=== PATIENT | female | born 1955 | race Caucasian/White ===

== ENCOUNTER 2020-04-21 12:13 | Inpatient (IN) | payer BC, OTHER ==
[~2020-04-21] VITALS: Ht 157.5 cm; Wt 112.4 kg
[2020-04-21 13:05] LABS: Basophils # (auto) 0.1 10 ^3/uL (0-0.2); Eosinophils # (auto) 0 10 ^3/uL (0-0.8); Hemoglobin 7.4 g/dL (12.2-16.2); Lymphocytes # (auto) 1.1 10 ^3/uL (0.4-5.4); White Blood Cell 12.6 10^3/uL (4.4-10.8)
[2020-04-21 13:07] LABS: Basophils % (auto) 0.5 % (0.0-2.0); Hematocrit 22.4 % (36.0-46.0); Lymphocytes % (auto) 8.7 % (10.0-50.0); Mean Corpuscular Hemoglobin 29.7 pg (28.0-32.0); Mean Corpuscular Volume 89.9 fL (80.0-100.0); Monocytes # (auto) 0.7 10 ^3/uL (0-1.3); Monocytes % (auto) 5.8 % (0.0-12.0); Neutrophils # (auto) 10.7 10 ^3/uL (1.6-8.6); Platelet Count (auto) 344 10^3/uL (140-450); Red Blood Cells 2.49 10^6/uL (4.0-5.20); Red Cell Distribution Width 18.6 % (11.8-14.3)
[2020-04-21 13:18] LABS: Alanine Aminotransferase 25 U/L (13-56); Albumin 2.9 g/dL (3.4-5.0); Anion Gap 11 (5-15); Aspartate Aminotransferase 25 U/L (15-37); BUN/Creatinine Ratio 38.8; Blood Urea Nitrogen 31 mg/dL (7-18); Calcium 8.1 mg/dL (8.5-10.1); Carbon Dioxide 22 mmol/L (21-32); Chloride 100 mmol/L (98-107); GFR African American 93 mL/min; GFR Non-African American 77 mL/min; Glucose 107 mg/dL (74-106); Magnesium 2.1 mg/dL (1.6-2.6); Potassium 3.6 mmol/L (3.5-5.1); Sodium 133 mmol/L (136-145)
[2020-04-21 13:20] LABS: INR 1.07 (0.9-1.15); Partial Thromboplastin Time 21.5 sec (23.64-32.05)
[2020-04-21 13:24] LABS: Alkaline Phosphatase 48 U/L (45-117); Bilirubin, Total 0.4 mg/dL (0.2-1.0); Total Protein 5.9 g/dL (6.4-8.2)
[2020-04-21] MEDS ORDERED: SODIUM CHLORIDE 0.9% 1,000 ML IVB ONE (13:27)
[2020-04-21] MEDS ORDERED: PANTOPRAZOLE 40 MG/10 ML VIAL INJ IV ONE (13:30)
[2020-04-21] MEDS ORDERED: ONDANSETRON HCL 4 MG/2 ML VIAL IV ONE (13:30)
[2020-04-21 14:38] LABS: Urine Bacteria FEW /hpf (None Seen); Urine Blood Negative /uL (Negative); Urine Mucus MODERATE (None Seen); Urine Specific Gravity 1.023 (1.001-1.035); Urine WBC 3 /hpf (0 - 5)
[2020-04-21] MEDS ORDERED: ESCI20TA51 PO (15:48)
[2020-04-21] MEDS ORDERED: LOSA50TA30 PO (15:48)
[2020-04-21] MEDS ORDERED: MELO1TAB56 PO (15:48)
[2020-04-21] MEDS ORDERED: ALPR0.255 PO (15:48)
[2020-04-21] MEDS ORDERED: GABA400C11 PO (15:48)
[2020-04-21] MEDS ORDERED: NITROGLYCERIN 0.4 MG SL TAB SL PRN (16:15)
[2020-04-21] MEDS ORDERED: MORPHINE SULF INJ 2 MG/ML SYRINGE 1ML IV PRN (16:15)
[2020-04-21 16:27] VITALS: BP 116/55
[2020-04-21 16:45] VITALS: BP 123/62
[2020-04-21 17:01] LABS: Amphetamine Screen, Urine NEGATIVE (NEGATIVE); Barbiturate Scree,Urine NEGATIVE (NEGATIVE); Benzodiazephine Screen, Urine NEGATIVE (NEGATIVE); Cannabinoid Screen, Urine POSITIVE (NEGATIVE); Cocaine Screen, Urine NEGATIVE (NEGATIVE); Opiate Scree,Urine NEGATIVE (NEGATIVE); Phencyclidine Screen, Urine NEGATIVE (NEGATIVE)
[2020-04-21] MEDS: LORazepam 2MG/ML-1ML VIAL IV PRN (17:20)
[2020-04-21] MEDS: SODIUM CHLORIDE 0.9% 1,000 ML IV SCH (17:20)
[2020-04-21] MEDS: ONDANSETRON HCL 4 MG/2 ML VIAL IV PRN (17:23)
[2020-04-21 18:27] VITALS: BP 129/62
[2020-04-21 18:59] VITALS: BP 128/61
[2020-04-21 19:14] VITALS: BP 121/54
[2020-04-21 21:00] VITALS: BP 109/58
[2020-04-21] MEDS: MORPHINE SULF INJ 2 MG/ML SYRINGE 1ML IV PRN (21:00)
[2020-04-21] MEDS: metroNIDAZOLE 500MG/100ML 100 ML IV SCH (22:18)
[2020-04-21] MEDS: PANTOPRAZOLE 40 MG/10 ML VIAL INJ IV SCH (22:19)
[2020-04-21 22:39] LABS: Hematocrit 20.6 % (36.0-46.0)
[2020-04-21] MEDS ORDERED: OCTREOTIDE ACETATE 500 MCG/ML VL ONE (23:56)
[2020-04-22] MEDS: OCTREOTIDE ACETATE 500 MCG in SODIUM CHL 0.9% 99 ML IV SCH ×3 (00:05→20:31)
[2020-04-22] MEDS: ONDANSETRON HCL 4 MG/2 ML VIAL IV PRN ×2 (01:01→20:32)
[2020-04-22] MEDS: SODIUM CHLORIDE 0.9% 1,000 ML IV SCH ×3 (02:55→22:26)
[2020-04-22 03:48] LABS: Hemoglobin 6.3 g/dL (12.2-16.2)
[2020-04-22 05:24] VITALS: BP 102/51
[2020-04-22 05:45] VITALS: BP 108/45
[2020-04-22] MEDS: metroNIDAZOLE 500MG/100ML 100 ML IV SCH ×3 (07:00→22:25)
[2020-04-22 08:25] VITALS: BP 103/64
[2020-04-22 08:40] VITALS: BP 132/66
[2020-04-22] MEDS: cefTRIAXone 1GM/50ML D5W 50 ML IV SCH (10:09)
[2020-04-22 10:59] VITALS: BP 153/69
[2020-04-22] MEDS: PANTOPRAZOLE 40 MG/10 ML VIAL INJ IV SCH ×2 (11:51→22:26)
[2020-04-22] MEDS: MORPHINE SULF INJ 2 MG/ML SYRINGE 1ML IV PRN ×2 (12:03→20:31)
[2020-04-22] MEDS: LORazepam 2MG/ML-1ML VIAL IV PRN ×2 (12:03→21:22)
[2020-04-22] MEDS: FOLIC ACID 1 MG, MULTIPLE VITAMIN 10 ML, MAGNESIUM SULF SDV 50% 8 MEQ, THIAMINE INJ 100... INJ SCH ×5 (12:57)
[2020-04-22 13:48] LABS: Basophils # (auto) 0 10 ^3/uL (0-0.2); Eosinophils # (auto) 0 10 ^3/uL (0-0.8); Lymphocytes # (auto) 0.7 10 ^3/uL (0.4-5.4); Monocytes # (auto) 0.3 10 ^3/uL (0-1.3); Monocytes % (auto) 5.1 % (0.0-12.0)
[2020-04-22 13:50] LABS: Basophils % (auto) 0.7 % (0.0-2.0); Eosinophils % (auto) 0.4 % (0.0-7.0); Hematocrit 24.6 % (36.0-46.0); Hemoglobin 8.3 g/dL (12.2-16.2); Lymphocytes % (auto) 12.4 % (10.0-50.0); Mean Corpuscular Hemoglobin 30.7 pg (28.0-32.0); Mean Corpuscular Hgb Conc. 33.9 g/dL (32.0-36.0); Mean Corpuscular Volume 90.6 fL (80.0-100.0); Neutrophils # (auto) 4.8 10 ^3/uL (1.6-8.6); Neutrophils % (auto) 81.4 % (37.0-80.0); Platelet Count (auto) 169 10^3/uL (140-450); Red Blood Cells 2.72 10^6/uL (4.0-5.20); Red Cell Distribution Width 17.1 % (11.8-14.3); White Blood Cell 5.8 10^3/uL (4.4-10.8)
[2020-04-22 14:05] LABS: BUN/Creatinine Ratio 43.1; Calcium 7.3 mg/dL (8.5-10.1); Potassium 3.8 mmol/L (3.5-5.1)
[2020-04-22 18:21] LABS: Hemoglobin 7.9 g/dL (12.2-16.2)
[2020-04-22 18:23] LABS: Hematocrit 23.5 % (36.0-46.0)
[2020-04-22 22:33] LABS: Hematocrit 23.3 % (36.0-46.0); Hemoglobin 8.2 g/dL (12.2-16.2)
[2020-04-23 00:31] LABS: Hemoglobin 7.7 g/dL (12.2-16.2)
[2020-04-23 00:33] LABS: Hematocrit 22.7 % (36.0-46.0)
[2020-04-23 02:42] VITALS: BP 93/42
[2020-04-23 03:08] VITALS: BP 109/61
[2020-04-23] MEDS: MORPHINE SULF INJ 2 MG/ML SYRINGE 1ML IV PRN ×4 (03:59→20:25)
[2020-04-23 04:35] VITALS: BP 110/62
[2020-04-23] MEDS ORDERED: OCTREOTIDE ACETATE 500 MCG/ML VL ONE (05:42)
[2020-04-23] MEDS: OCTREOTIDE ACETATE 500 MCG in SODIUM CHL 0.9% 99 ML IV SCH ×2 (05:56→15:25)
[2020-04-23] MEDS: metroNIDAZOLE 500MG/100ML 100 ML IV SCH ×3 (06:05→22:13)
[2020-04-23 07:32] LABS: Basophils # (auto) 0 10 ^3/uL (0-0.2); Basophils % (auto) 0.7 % (0.0-2.0); Eosinophils # (auto) 0.1 10 ^3/uL (0-0.8); Eosinophils % (auto) 1.7 % (0.0-7.0); Hematocrit 27.5 % (36.0-46.0); Hemoglobin 9.3 g/dL (12.2-16.2); Lymphocytes # (auto) 0.8 10 ^3/uL (0.4-5.4); Lymphocytes % (auto) 17.6 % (10.0-50.0); Mean Corpuscular Hemoglobin 30.7 pg (28.0-32.0); Mean Corpuscular Hgb Conc. 33.9 g/dL (32.0-36.0); Mean Corpuscular Volume 90.5 fL (80.0-100.0); Monocytes # (auto) 0.3 10 ^3/uL (0-1.3); Monocytes % (auto) 5.7 % (0.0-12.0); Neutrophils # (auto) 3.6 10 ^3/uL (1.6-8.6); Neutrophils % (auto) 74.3 % (37.0-80.0); Nucleated Red Blood Cells % 0.1 %; Platelet Count (auto) 168 10^3/uL (140-450); Red Blood Cells 3.04 10^6/uL (4.0-5.20); Red Cell Distribution Width 16.4 % (11.8-14.3); White Blood Cell 4.8 10^3/uL (4.4-10.8)
[2020-04-23 07:53] LABS: Calcium 7.6 mg/dL (8.5-10.1); Magnesium 2.4 mg/dL (1.6-2.6); Potassium 3.6 mmol/L (3.5-5.1)
[2020-04-23 07:57] LABS: BUN/Creatinine Ratio 28.1
[2020-04-23] MEDS ORDERED: LIDOCAINE VISCOUS 2% 15ML UD ONE (08:11)
[2020-04-23] MEDS ORDERED: SODIUM CHLORIDE LOCK 10 ML ONE (08:11)
[2020-04-23] MEDS ORDERED: diphenhdrAMINE HCL 50 MG/1 ML VL ONE (08:12)
[2020-04-23] MEDS: SODIUM CHLORIDE 0.9% 1,000 ML IV SCH ×2 (09:21→15:03)
[2020-04-23] MEDS: cefTRIAXone 1GM/50ML D5W 50 ML IV SCH (09:21)
[2020-04-23] MEDS: PANTOPRAZOLE 40 MG/10 ML VIAL INJ IV SCH ×3 (10:00→22:12)
[2020-04-23] MEDS: fentaNYL CITRATE 100 MCG/2 ML VL ONE ×2 (11:27→11:30)
[2020-04-23] MEDS: MIDAZOLAM HCL 5 MG/ML-1ML VIAL ONE ×2 (11:27→11:30)
[2020-04-23 13:14] LABS: Hematocrit 26.7 % (36.0-46.0)
[2020-04-23] MEDS ORDERED: GOLYTELY 4L KIT PO ONE (14:00)
[2020-04-23] MEDS ORDERED: MORPHINE SULF INJ 2 MG/ML SYRINGE 1ML IV PRN (14:30)
[2020-04-23] MEDS: FOLIC ACID 1 MG, MULTIPLE VITAMIN 10 ML, MAGNESIUM SULF SDV 50% 8 MEQ, THIAMINE INJ 100... INJ SCH ×5 (15:01)
--- NOTE | 2020-04-23 16:00 | NUR ---
Telemetry admit from ER FADUMO GARCIA admitted to Telemetry unit after SBAR received. Patient oriented to Mami Peters primary RN, unit, room, bed, and unit policies regarding patient care and visiting hours. Patient now on continuous telemetry monitoring, tele box #83 and telemetry reading on arrival to unit is SR 90's. Patient instructed on POC, fall precautions and to call for assistance as needed. patient verbalized understanding. fall precautions in place with call light within reach.
--- NOTE | 2020-04-23 16:30 | NUR ---
Eulogio in progress per MD order patient tolerating well. Instructions provided to patient on medication. patient verbalized understanding.
[2020-04-23 17:21] VITALS: BP 126/74
[2020-04-23 18:23] LABS: Hematocrit 32.2 % (36.0-46.0); Hemoglobin 10.7 g/dL (12.2-16.2)
--- NOTE | 2020-04-23 18:51 | NUR ---
Closing note Patient resting in bed with even and unlabored respirations, no distress noted. Fall precautions in place with call light within reach. Golytely in progress per MD order. patient tolerating well.
--- NOTE | 2020-04-23 19:18 | NUR ---
Care endorsed to EMERITA Gonsalez.
--- NOTE | 2020-04-23 19:55 | NUR ---
OPENING NOTE PT. AWAKE AND ALERT IN BED. CALL LIGHT WITHIN REACH. NO DISTRESS OR PAIN AT THIS TIME. BED LOW AND LOCKED. "GO-LITELY" AT BEDSIDE AND PT. VERBALIZES UNDERSTANDING WITH UPCOMING PROCEDURE PREP. WILL CONTINUE TO MONITOR PT. STATUS.
[2020-04-23 22:00] VITALS: BP 131/77
[2020-04-24] VITALS (7 sets, daily range): BP systolic 108–146; BP diastolic 59–95
[2020-04-24] MEDS: MORPHINE SULF INJ 2 MG/ML SYRINGE 1ML IV PRN ×3 (00:37→19:05)
[2020-04-24] MEDS: OCTREOTIDE ACETATE 500 MCG in SODIUM CHL 0.9% 99 ML IV SCH ×2 (01:37→11:15)
[2020-04-24] MEDS: SODIUM CHLORIDE 0.9% 1,000 ML IV SCH ×2 (05:21→19:21)
[2020-04-24] MEDS: metroNIDAZOLE 500MG/100ML 100 ML IV SCH ×3 (05:28→22:29)
--- NOTE | 2020-04-24 05:30 | NUR ---
tap water enema tap water enema procedure done. stool relieved was yellow/light brown. pt. verbalized cramping and gas.
[2020-04-24] MEDS ORDERED: MAGNESIUM CITRATE SOLUTION 300 ML BTL PO ONE (06:00)
[2020-04-24 07:20] LABS: Potassium 3.2 mmol/L (3.5-5.1)
[2020-04-24 07:38] LABS: Magnesium 4.3 mg/dL (1.6-2.6)
--- NOTE | 2020-04-24 07:39 | NUR ---
CRITICAL LAB CRITICAL LAB RECEIVED ON BEHALF OF CLARICE CLAYTON RN BY JOSE FELDER, RADHA 4.3 MAGNESIUM REPORTED
[2020-04-24] MEDS: PANTOPRAZOLE 40 MG/10 ML VIAL INJ IV SCH ×2 (10:02→22:29)
[2020-04-24] MEDS: cefTRIAXone 1GM/50ML D5W 50 ML IV SCH (10:02)
[2020-04-24] MEDS ORDERED: FLUMAZENIL 0.1 MG/ML INJ 10ML MDV IV ONE (12:34)
[2020-04-24] MEDS ORDERED: NALOXONE HCL 0.4 MG/ML VIAL ONE (12:34)
[2020-04-24] MEDS ORDERED: SODIUM CHLORIDE LOCK 10 ML ONE (12:34)
--- NOTE | 2020-04-24 13:12 | NUR ---
Patient taken down to GI lab for procedure and care endorsed to Hemalatha freitas. No distress or sob noted on departure. Will cont care on arrival
[2020-04-24] MEDS: fentaNYL CITRATE 100 MCG/2 ML VL ONE ×3 (13:19→13:25)
[2020-04-24] MEDS: MIDAZOLAM HCL 5 MG/ML-1ML VIAL ONE ×4 (13:19→13:28)
[2020-04-24] MEDS: diphenhdrAMINE HCL 50 MG/1 ML VL ONE ×2 (13:23→13:25)
[2020-04-24] MEDS ORDERED: POTASSIUM EFFERVESENT TAB 25 MEQ PO ONE (14:30)
--- NOTE | 2020-04-24 14:30 | NUR ---
Patient back from GI lab no distress or sob noted. Patient is alert and oriented. Patient is noted mildly drowsy. Bed alarm in place and patient instructed to call for assistance as needed she verbalized understanding. Cont care
[2020-04-24] MEDS: FOLIC ACID 1 MG, MULTIPLE VITAMIN 10 ML, MAGNESIUM SULF SDV 50% 8 MEQ, THIAMINE INJ 100... INJ SCH ×5 (15:00)
--- NOTE | 2020-04-24 15:12 | NUR ---
Nutrition consult/assessment Notes please see attached link for complete assessment Est Energy needs ABW 69 [id number] kcals (20-23kcal/kgBW), Est Protein needs: 69-75 gms/day (1.0-1.1 gm/kgBW) Addendum: 04/24/20 at [address] Amended: Links added.
--- NOTE | 2020-04-24 18:40 | NUR ---
Yuan catheter dc'd Order to discontinue yuan catheter. Yuan dc'd with clean technique following deflation of balloon. Patient tolerated well with no complaints of pain. Continue care.
[2020-04-24] MEDS: LORazepam 2MG/ML-1ML VIAL IV PRN (22:30)
[2020-04-25] VITALS (18 sets, daily range): BP systolic 93–147; BP diastolic 29–82
[2020-04-25] MEDS: LORazepam 2MG/ML-1ML VIAL IV PRN (06:35)
[2020-04-25] MEDS: OCTREOTIDE ACETATE 500 MCG in SODIUM CHL 0.9% 99 ML IV SCH ×3 (06:48→18:13)
[2020-04-25] MEDS: metroNIDAZOLE 500MG/100ML 100 ML IV SCH ×3 (06:49→22:13)
[2020-04-25 07:04] LABS: Basophils # (auto) 0 10 ^3/uL (0-0.2); Eosinophils # (auto) 0.1 10 ^3/uL (0-0.8); Monocytes # (auto) 0.4 10 ^3/uL (0-1.3); Neutrophils # (auto) 3.6 10 ^3/uL (1.6-8.6)
[2020-04-25 07:06] LABS: Basophils % (auto) 0.6 % (0.0-2.0); Eosinophils % (auto) 1.7 % (0.0-7.0); Hematocrit 19.4 % (36.0-46.0); Lymphocytes # (auto) 0.7 10 ^3/uL (0.4-5.4); Lymphocytes % (auto) 15.2 % (10.0-50.0); Mean Corpuscular Hemoglobin 31.6 pg (28.0-32.0); Mean Corpuscular Hgb Conc. 34.3 g/dL (32.0-36.0); Mean Corpuscular Volume 92.2 fL (80.0-100.0); Monocytes % (auto) 8.1 % (0.0-12.0); Neutrophils % (auto) 74.4 % (37.0-80.0); Nucleated Red Blood Cells % 0.2 %; Platelet Count (auto) 151 10^3/uL (140-450); Red Cell Distribution Width 16.7 % (11.8-14.3); White Blood Cell 4.9 10^3/uL (4.4-10.8)
[2020-04-25 07:19] LABS: Hemoglobin 6.7 g/dL (12.2-16.2)
[2020-04-25 07:31] LABS: Calcium 7.3 mg/dL (8.5-10.1); Magnesium 2.6 mg/dL (1.6-2.6); Potassium 4.6 mmol/L (3.5-5.1)
[2020-04-25 07:32] LABS: BUN/Creatinine Ratio 17.5
--- NOTE | 2020-04-25 07:40 | NUR ---
patient has critical lab 6.7 hemoglobin for am lab. thanks
--- NOTE | 2020-04-25 08:01 | NUR ---
Hospitalist paged regarding critical lab hgb. Patient sitting up in bed no acute distress or sob. Patient denies bleeding, denies dizziness, denies abd pain at this time. No s/s of bleeding noted. Awaiting call back from Dr Jaeger
--- NOTE | 2020-04-25 08:11 | NUR ---
Spoke to hospitalist Dr Jaeger. Patient called nurses station regarding "stool". Upon entering room patient found sitting on the toilet multiple large blood clots noted on bathroom floor, more noted next to bed and on floor and large bright blood on bed sheets, linen and gown. Patient reports feeling very dizzy and lightheaded. Increased paleness noted. Patient assisted back to bed VS BP 101/56 hr 84 patient noted SOB and placed on 2 l n/c sat 90%. 0820 Dr Jaeger at bedside to assess patient. New orders received for NS bolus 1L now and maintenance dose 150ml/hr NS. Bolus started as ordered at this time. Spring Gee paged to notify. Cont to monitor at bedside
[2020-04-25] MEDS ORDERED: SODIUM CHLORIDE 0.9% 1,000 ML IV ONE (08:30)
[2020-04-25] MEDS: SODIUM CHLORIDE 0.9% 1,000 ML IV SCH ×3 (08:30→21:50)
--- NOTE | 2020-04-25 08:41 | NUR ---
Spoke to Dr German notified of patient's status including active GI bleed. New orders received for surgical and Radiology consult for possible diverticuli bleed, FFPX2, NPO except ice chips, Nuc med bleeding scan and transfer orders for DAVID. House sup Rita/Evette notified and awaiting DAVID bed. Unable to perform bleeding scan due to no nuc med tech on weekend per neo mercedes, MD German aware and states can be done Sunday. Will cont to monitor VS BP 109/63 HR 79 Oxygen is 100%. Patient reports feeling better, denies dizziness at this time. No active bleeding noted at this time. IV bolus currently infusing at this time. Cont care
--- NOTE | 2020-04-25 09:08 | NUR ---
House mago Rita at bedside for IV insertion. Patient will be transferred to 294B DAVID status to fortino Rockwell.
--- NOTE | 2020-04-25 09:15 | NUR ---
Patient care endorsed to Luli freitas. Patient sitting up in bed currently infusing NS bolus at right hand and NS @150ml/hr to left wrist. Per [place] sup Rita left EJ 18G obtained. Patient states feeling better and denies dizziness, lightheaded, No acute distress or sob noted. Patient continued on 2L n/c. Call light within reach and patient instructed to call for assistance.
--- NOTE | 2020-04-25 09:18 | NUR ---
ASSUMED CARE FROM EMERITA DE JESUS PATIENT IS AWAKE, ALERT, AND ORIENTED X4. PATIENT HAS NO S/S OF DISTRESS/SOB OR PAIN. INSTRUCTED PATIENT ON POC, PATIENT VERBALIZED UNDERSTANDING. BED IS IN LOWEST POSITION WITH SIDE RAILS RAISED X2, BED WHEELS LOCKED, AND CALL LIGHT IS WITHIN REACH. WILL CONTINUE TO MONITOR.
--- NOTE | 2020-04-25 10:00 | NUR ---
PATIENT MOVED TO ROOM 294B PATIENT. PATIENT HAS NO S/S OF DISTRESS/SOB OR PAIN AT THIS TIME.
[2020-04-25] MEDS: PANTOPRAZOLE 40 MG/10 ML VIAL INJ IV SCH ×2 (10:12→22:13)
[2020-04-25] MEDS: cefTRIAXone 1GM/50ML D5W 50 ML IV SCH (10:12)
--- NOTE | 2020-04-25 10:20 | NUR ---
MD DIAZ AT BEDSIDE UPDATED MD ON PATIENT'S STATUS INCLUDING PASSING OF BLOODY STOOL AND CLOTS. IS AWARE. NO NEW ORERS AT THIS TIME.
--- NOTE | 2020-04-25 12:07 | NUR ---
SPOKE WITH MD LEVY. PER MD SHE SPOKE WITH SURGEON AND RADIOLOGIST AND THEY BOTH WILL SEE PATIENT TOMORROW. MD WANTS PATIENT TO STAY NPO EXCEPT ICE CHIPS. WILL FOLLOW THROUGH WITH ORDERS.
[2020-04-25] MEDS: FOLIC ACID 1 MG, MULTIPLE VITAMIN 10 ML, MAGNESIUM SULF SDV 50% 8 MEQ, THIAMINE INJ 100... INJ SCH ×5 (12:23)
[2020-04-25] MEDS: MORPHINE SULF INJ 2 MG/ML SYRINGE 1ML IV PRN ×2 (14:40→19:03)
--- NOTE | 2020-04-25 15:09 | NUR ---
SPOKE WITH PHARMACIST CELESTINA. INFORMED HIM FLAGYL IS LATE DUE TO PATIENT RECEIVING BLOOD, SANDOSTATIN, AND BANANA BAG. PER CELESTINA IT IS OKAY TO RUN FLAGYL WITH BANANA BAG.
--- NOTE | 2020-04-25 15:09 | NUR ---
CALLED TO GENERAL SALES MANAGER REPORT TO EMERITA WORLEY. PER DAWN SHE WALKED INTO ANOTHER PATIENT'S ROOM WILL BACK IN 20 MINS.
--- NOTE | 2020-04-25 15:20 | NUR ---
REPORT GIVEN TO MEIR. TRANSFERRED PATIENT VIA BED TO ROOM 262. PATIENT HAS NO S/S OF DISTRESS/SOB OR PAIN AT THIS TIME.
--- NOTE | 2020-04-25 15:35 | NUR ---
TRANSFER Received report from EMERITA Rockwell. [facility] Patient connected to bedside monitor with alarms in place. Patient is A&Ox4 with no s/s of distress and denies pain. Patient with three PIVs: #18 Lt EJ infusing PRBCs at 125ml/hr, #24 Lt wrist infusing Sandostatin at 10ml/hr, and #22 Right hand infusing Banana Bag at 125.1ml/hr. Vital signs on transfer as follows: BP 140/82,HR 71 SR, RR 14, O2 sat 100% on RA, 98.3 oral temp and bedscale wt 89.7kg. Patient currently NPO. Plan for patient to have Nuc Med study, Surgical consult and Radiological consult on Sunday04/26/20. Bed in lowest position, rails x2 up and call light within reach. Updated on plan of care. Will continue to monitor q1hr/PRN.
--- NOTE | 2020-04-25 16:33 | NUR ---
New PIV started in right forearm, #22 after one attempt. Removed #24 PIV from left wrist that was dislodged.
--- NOTE | 2020-04-25 19:07 | NUR ---
CLOSING SHIFT NOTE: Patient sitting up in bed, no s/s of distress noted. Patient still with FFP infusing to left EJ #18. Sandostatin infusing at 10ml/hr to right forearm #22 and Banana Bag infusing at 125ml/hr to right hand #22. Patient able to get out of bed with assist to bsc. Patient still having dark red liquid bowel movements. Patient remains NPO except for meds. Report to be given to JOSE FELDER.
--- NOTE | 2020-04-25 19:46 | NUR ---
REPORT RECEIVED AND ASSUMED CARE; SEE INTERVENTIONS FOR ASSESSMENT; VS STABLE AT THIS TIME;WILL CONT. TO MONITOR.
--- NOTE | 2020-04-25 20:26 | NUR ---
PAGED HOSPITALIST PT. SBP DROPPING TO 57; CURRENTLY RECEIVING A 300ML NS BOLUS AND NOT RESPONDING SBP.
--- NOTE | 2020-04-25 20:30 | NUR ---
PT. HAD X1 LARGE, DARK BLOOD. LIQUID STOOL; KATE-CARE PROVIDED AND FULL LINEN CHANGE; PT. TOLERATED WELL.
--- NOTE | 2020-04-25 20:40 | NUR ---
PLACED ON NC AT 2L; O2 SAT= 92%; PT. ACTIVELY BLEEDING FROM RECTUM.
[2020-04-25] MEDS ORDERED: NOREPINEPHRINE 8 MG/250ML KIT 250 ML IV ONE (20:41)
--- NOTE | 2020-04-25 20:55 | NUR ---
PT. RECEIVING NS BOLUS AND NOT RESPONDING WELL SBP IN THE HIGH 60'S AND LOW 70'S; WILL START LEVOPHED GTT AT 2MCG.
--- NOTE | 2020-04-25 20:59 | NUR ---
LAB AT BEDSIDE TO OBTAIN STAT CBC.
--- NOTE | 2020-04-25 21:07 | NUR ---
PAGED HOSPITALIST AGAIN; AWAIT CALL BACK.
[2020-04-25 21:20] LABS: Basophils # (auto) 0 10 ^3/uL (0-0.2); Eosinophils # (auto) 0.1 10 ^3/uL (0-0.8); Eosinophils % (auto) 2.3 % (0.0-7.0); Lymphocytes # (auto) 0.9 10 ^3/uL (0.4-5.4); Monocytes # (auto) 0.4 10 ^3/uL (0-1.3); Neutrophils # (auto) 4.3 10 ^3/uL (1.6-8.6); Nucleated Red Blood Cells % 0.1 %; White Blood Cell 5.7 10^3/uL (4.4-10.8)
[2020-04-25 21:22] LABS: Basophils % (auto) 0.6 % (0.0-2.0); Hematocrit 18.6 % (36.0-46.0); Lymphocytes % (auto) 15.2 % (10.0-50.0); Mean Corpuscular Hemoglobin 30.6 pg (28.0-32.0); Mean Corpuscular Hgb Conc. 33.3 g/dL (32.0-36.0); Mean Corpuscular Volume 92.1 fL (80.0-100.0); Monocytes % (auto) 6.8 % (0.0-12.0); Neutrophils % (auto) 75.1 % (37.0-80.0); Platelet Count (auto) 133 10^3/uL (140-450); Red Blood Cells 2.01 10^6/uL (4.0-5.20); Red Cell Distribution Width 15.4 % (11.8-14.3)
[2020-04-25 21:27] LABS: Hemoglobin 6.2 g/dL (12.2-16.2)
--- NOTE | 2020-04-25 21:30 | NUR ---
S/W DR. Prerna WILLIAM AND OK RX FOR LEVOPHED GTT PER PROTOCOL; TRANSFUSE X2 UNITS PRBC FOR HGB= 6.2; UPGRADE TO ICU STATUS.
[2020-04-25] MEDS: NOREPINEPHRINE 8 MG/250ML KIT 250 ML IV SCH (21:57)
--- NOTE | 2020-04-25 23:30 | NUR ---
MODERATE, LIQUID, DARK BLOODY STOOL; KATE-CARE PROVIDED; PT. TOLERATED FAIR.
[2020-04-26] VITALS (79 sets, daily range): BP systolic 41–176; BP diastolic 13–110
--- NOTE | 2020-04-26 01:00 | NUR ---
LARGE, DARK BLOOD, LIQUID STOOL; KATE-CARE PROVIDED; PT. TOLERATED FAIR.
--- NOTE | 2020-04-26 01:15 | NUR ---
LARGE, LIQUID, DARK BLOOD STOOL; KATE-CARE PROVIDED, TOLERATED FAIR.
--- NOTE | 2020-04-26 01:40 | NUR ---
PAGED HOSPITALIST RE: LEVOPHED GTT AT 30MCG-NEED ANOTHER PRESSOR; PT. IS ACTIVELY RECTAL BLEEDING.
--- NOTE | 2020-04-26 02:00 | NUR ---
PT. HAD LARGE, DARK BLOOD, LIQUID STOOL; PT. TOLERATED FAIR; PT. IS ACTIVE RECTAL BLEED.
[2020-04-26] MEDS ORDERED: VASOPRESSIN 20 UNIT/ML ONE ×4 (02:10→06:32)
--- NOTE | 2020-04-26 02:10 | NUR ---
S/W DR. WILLIAM RE: LEVO GTT AT MAX AND ADDED VASOPRESSIN PER GI PROTOCOL FOR ACTIVE BLEED.
[2020-04-26] MEDS ORDERED: VASOPRESSIN 50 UNITS in D5W 5% 247.5 ML IV SCH (02:30)
[2020-04-26] MEDS: VASOPRESSIN 50 UNITS in D5W 5% 247.5 ML IV SCH ×6 (03:00→23:50)
--- NOTE | 2020-04-26 03:11 | NUR ---
pt. had very large, dark red, bloody stool; traci-care and linen change performed; pt. tolerated fair.
--- NOTE | 2020-04-26 03:12 | NUR ---
rectal blood is bright red-not dark red.
[2020-04-26] MEDS: OCTREOTIDE ACETATE 500 MCG in SODIUM CHL 0.9% 99 ML IV SCH ×3 (03:15→23:15)
--- NOTE | 2020-04-26 03:30 | NUR ---
PAGED HOSPITALIST RE: 4TH UNIT OF BLOOD INFUSING-POSSIBLE FFP AT THIS POINT WITH MORE UNITS OF PRBC.
--- NOTE | 2020-04-26 03:40 | NUR ---
S/W HOSPITALIST AND X4 PRBC AND X1 FFP.
--- NOTE | 2020-04-26 04:28 | NUR ---
pt. has a large, bright red blood, stool; pt. to unstable to move at this time.
[2020-04-26] MEDS: SODIUM CHLORIDE 0.9% 1,000 ML IV SCH (04:30)
--- NOTE | 2020-04-26 05:41 | NUR ---
LEE LEVY RE: PT. ACTIVE BLEEDING.
--- NOTE | 2020-04-26 05:53 | NUR ---
S/W DR. Kelsey LEVY AND SHE WANTS ME TO PAGE DR. TALAVERA STAT; PT. ACTIVELY BLEEDING.
[2020-04-26] MEDS: metroNIDAZOLE 500MG/100ML 100 ML IV SCH (06:00)
--- NOTE | 2020-04-26 06:04 | NUR ---
PAGED DR. TALAVERA
[2020-04-26] MEDS: MORPHINE SULF INJ 2 MG/ML SYRINGE 1ML IV PRN (06:19)
--- NOTE | 2020-04-26 06:30 | NUR ---
S/W DR. Kelsey LEVY AND SHE SPOKE WITH DR. TALAVERA AND DR. WEBB-BOTH PHYSICIANS WILL SEE THIS PATIENT THIS MORNING; DR. WEBB WILL DO NUCLEAR MEDICINE SCAN FOR BLEED AND DR. TALAVERA WILL CONSULT FOR POSSIBLE SURGERY.
--- NOTE | 2020-04-26 06:45 | NUR ---
DR. LESLIE AT BEDSIDE TO PLACE A CENTRAL LINE; PT. PREPPED USING STERILE PROCEDURE AND TOLERATED LINE PLACEMENT WELL.
--- NOTE | 2020-04-26 07:04 | NUR ---
S/W DR. Kelsey LEVY AND RX FOR STAT IR ANGIOGRAM WITH DR. WEBB AND POSSIBLE EMBOLIZATION.
--- NOTE | 2020-04-26 07:18 | NUR ---
REPORT RECEIVED FROM MARINE PAINTER RN
--- NOTE | 2020-04-26 07:49 | NUR ---
FAMILY SON UPDATED ON PATIENT STATUS AND HOW CRITICAL AND UNSTABLE SHE IS AT THE MOMENT. PER SON BELLA HE IS ON HIS WAY FROM [place]
[2020-04-26] MEDS: LORazepam 2MG/ML-1ML VIAL IV PRN (08:14)
[2020-04-26] MEDS ORDERED: ETOMIDATE (2MG/ML) 20ML VIAL IV ONE (08:20)
[2020-04-26] MEDS ORDERED: SUCCINYLCHOLINE CHLORIDE 20 MG/ML 10ML VIAL IV ONE (08:21)
[2020-04-26] MEDS: PHENYLEPHRINE IV 250 ML IV SCH ×2 (08:22→19:35)
[2020-04-26] MEDS ORDERED: PHENYLEPHRINE IV 500 ML IV ONE (08:23)
[2020-04-26] MEDS ORDERED: FLUMAZENIL 0.1 MG/ML INJ 10ML MDV IV ONE (08:27)
[2020-04-26 08:30] LABS: Platelet Count (auto) 41 10^3/uL (140-450); Red Blood Cells 2.09 10^6/uL (4.0-5.20)
[2020-04-26 08:31] LABS: Hematocrit 19.7 % (36.0-46.0); Mean Corpuscular Hemoglobin 30.6 pg (28.0-32.0); Mean Corpuscular Hgb Conc. 32.6 g/dL (32.0-36.0); Red Cell Distribution Width 13.7 % (11.8-14.3); White Blood Cell 12.8 10^3/uL (4.4-10.8)
[2020-04-26 08:35] LABS: Basophils % (manual) 0 (0.0-2.0); Blast Cells 0; Eosinophils % (manual) 0 (0-7); Hemoglobin 6.4 g/dL (12.2-16.2); Myelocytes % 0; Promyelocytes % 0; Reactive Lymphocytes 0
[2020-04-26] MEDS: MIDAZOLAM DRIP 50 mg/50mL 50 ML IV SCH (08:36)
[2020-04-26 08:44] LABS: INR 2.21 (0.9-1.15); Partial Thromboplastin Time 59.5 sec (23.64-32.05)
[2020-04-26 08:48] LABS: BUN/Creatinine Ratio 25.5; Potassium 3.8 mmol/L (3.5-5.1)
--- NOTE | 2020-04-26 08:48 | NUR ---
BLOOD TRANSFUSION COMPLETE NO REACTION NOTED
--- NOTE | 2020-04-26 08:55 | NUR ---
Respiratory note: PATIENT INTUBATED FOR RESPIRATORY FAILURE BY HARLEY EVANS, J2EE PROGRAMMER AT APPROX 0830, WITH AN 8.0 ETT. TUBE PLACEMENT CONFIRMED WITH POSITIVE COLOR CHANGE ON CO2 DETECTOR, BILATERAL BREATH SOUNDS WERE HEARD, AND CONDENSATION WAS SEEN IN THE TUBE. ETT WAS SECURED VIA ETIENNE AT THE 23CM MARKING AT THE LIP. AWAITING CXR FOR DEPTH CONFIRMATION. PATIENT WAS PLACED ON RENTAL V200 VENT AND IS BEING VENTILATED WITH THE CHARTED ORDERED SETTINGS, PER DR. BAEZA'S BEDSIDE ORDER. SKIN IS COOL/MOIST TO THE TOUCH AND COLOR IS VERY WHITE. THERE IS A TRIPLE LUMEN CENTRAL LINE PLACED IN THE RIGHT IJ. NON PITTING EDEMA NOTED IN BILATERAL UPPER EXTREMITIES, AND LOWER EXTREMITIES SHOW PITTING EDEMA. PATIENT IS UNRESPONSIVE TO BOTH VERBAL/TACTILE STIMULI. SHE IS TOLERATING VENT WELL, HOWEVER, SHE IS TACHYPNEIC. VENT PLUGGED INTO RED OUTLET AND ALL ALARMS ARE SET AND AUDIBLE. CARE WILL BE HANDED OFF TO [facility] AT THIS TIME.
[2020-04-26 08:57] LABS: Calcium 5.2 mg/dL (8.5-10.1)
[2020-04-26] MEDS: cefTRIAXone 1GM/50ML D5W 50 ML IV SCH (09:00)
--- NOTE | 2020-04-26 09:00 | NUR ---
RT Transport Note: Patient transported to REGISTERED NURSE CARDIAC TELEMETRY with EMERITA HURLEY. Patient transported to procedure on ventilator with previous ordered settings. Patient on cardiac care unit nurse with alarms set and audible, ambu-bag/mask connected to 02 tank. Transport completed without incident. Pt getting prep in labor employment associate.
--- NOTE | 2020-04-26 09:02 | NUR ---
PATIENT TAKEN TO MARKET DEVELOPER VIA ACLS GUIDELINES.
--- NOTE | 2020-04-26 09:06 | NUR ---
2ND UNIT PRBC STARTED NO REACTION NOTED
[2020-04-26] MEDS ORDERED: IODIXANOL 320MG/ML 100ML BTL IV ONE ×3 (09:10→13:02)
[2020-04-26] MEDS ORDERED: LIDOCAINE 2%HCL (LOCAL ANESTH.) INJ 20ML MDV ONE (09:10)
[2020-04-26 09:23] LABS: Band Neutrophils % (manual) 3; Lymphocytes % (manual) 7 (10.0-50.0); Metamyelocytes % 2; Monocytes % (manual) 4 (0-12)
--- NOTE | 2020-04-26 09:30 | NUR ---
Respiratory note: UNABLE TO OBTAINED POST INTUBATION ABG. PT IS IN [place] RECORDER GETTING PROCEDURE DONE.
--- NOTE | 2020-04-26 09:45 | NUR ---
REPORT GIVEN TO OBI FELDER TO ASSUME CARE
[2020-04-26] MEDS: PANTOPRAZOLE 40 MG/10 ML VIAL INJ IV SCH ×2 (10:00→22:00)
--- NOTE | 2020-04-26 10:00 | NUR ---
Respiratory note: UNABLE TO OBTAIN VENT CHECK AT THIS TIME. PT IS IN THE MIDDLE OF PROCEDURE. WILL CONTINUE TO MONITOR PT.
[2020-04-26] MEDS ORDERED: GELATIN 1 SPONGE SIZE 50 TOP ONE (10:07)
--- NOTE | 2020-04-26 10:17 | NUR ---
DR. LEVY UPDATED ON PATIENT STATUS. ALL QUESTIONS AND CONCERNS ADDRESSED AT THIS TIME
[2020-04-26] MEDS ORDERED: diphenhdrAMINE HCL 50 MG/1 ML VL ONE (11:09)
[2020-04-26] MEDS ORDERED: fentaNYL Drip 2500mCg/250mlNS 250 ML IV ONE (13:55)
--- NOTE | 2020-04-26 14:20 | NUR ---
I placed a page out to Dr. Ibrahim to discuss the plan of care for this patient and family's request to speak with her regarding their request to transfer to [facility].
--- NOTE | 2020-04-26 14:30 | NUR ---
TRANSFER FROM LINE CLOSER PATIENT ICU STATUS, FULL CODE STATUS. PATIENT SEDATED ON VENT. SEE IV FLOW SHEET FOR GTT'S AND TITRATIONS MADE. CUKRRENT HR 114, RR22, BP 72/45 VIA A-LINE TO RIGHT FEMORAL LINE. IV GTTS GOING TO RIGHT IJ TLC. CURRENT TEMP 95.2 RECTALLY. WARMING MEASURES APPLIED, BEAR HUGGER BLANKET PLACED ON PATIENT. ELAM TO GRAVITY. OGT CLAMPED, PLACEMENT VERIFIED. PATIENT'S CURRENT FIO2 AT 100%, PEEP +5, AC 16, VT 500. CONTINUE CARE. SEE EMAR FOR TIMES MEDICATION GIVEN. CONTINUE CARE.
[2020-04-26] MEDS ORDERED: SODIUM BICARBONATE 8.4 % INJ 50ML VIAL IV ONE ×2 (14:59→15:00)
[2020-04-26] MEDS: SODIUM BICARBONATE 50ML VIAL 150 ML in D5W 5% 1,000 ML IV SCH ×2 (15:00→20:45)
--- NOTE | 2020-04-26 15:00 | NUR ---
VENT CHANGES DR LASSITER AT BEDSIDE WITH NEW VENT ORDERS: PCV, RR 30, PRESSURE 23, PEEP +7, I TIME 1.0. FIO2 TITRATED TO 70% AFTER REVIEWING ABG. ALARMS SET AND AUDIBLE. RN AT BEDSIDE, AWARE OF CHANGES. POX ATTEMPED AT MULTIPLE LOCATION, NO ACCURATE READING NOTED. PT WITH TEMP 95.0F, HEATING BLANKET ON PT. WILL CONTINUE TO MONITOR.
[2020-04-26 15:04] LABS: Hematocrit 24.1 % (36.0-46.0); Hemoglobin 7.2 g/dL (12.2-16.2); Mean Corpuscular Hgb Conc. 30.1 g/dL (32.0-36.0); Mean Corpuscular Volume 102.9 fL (80.0-100.0); Platelet Count (auto) 55 10^3/uL (140-450); Red Blood Cells 2.34 10^6/uL (4.0-5.20); Red Cell Distribution Width 14.9 % (11.8-14.3)
[2020-04-26] MEDS ORDERED: EPINEPHrine HCL 250 ML IV ONE (15:15)
[2020-04-26 15:24] LABS: BUN/Creatinine Ratio 13.7
[2020-04-26 15:27] LABS: Bilirubin, Total 0.2 mg/dL (0.2-1.0); Total Protein 1.4 g/dL (6.4-8.2)
[2020-04-26] MEDS ORDERED: EPINEPHrine HCL INJECTION 4 MG in SODIUM CHL 0.9% 250 ML IV SCH (15:30)
[2020-04-26 15:38] LABS: Albumin 0.6 g/dL (3.4-5.0); Calcium 5.4 mg/dL (8.5-10.1); Potassium 6.8 mmol/L (3.5-5.1)
[2020-04-26 15:49] LABS: Basophils % (manual) 0 (0.0-2.0); Blast Cells 0; Eosinophils % (manual) 0 (0-7); Promyelocytes % 0; Reactive Lymphocytes 0
--- NOTE | 2020-04-26 15:50 | NUR ---
DR. CORRIGAN AT BEDSIDE: ORDERS MD GIVEN PATIENT'S CURRENT CRITICAL LABS, STATUS, AND CURRENT TRENDING HEMODYNAMICS AND GTTS. ORDERS GIVEN AND TO BE CARRIED OUT. sEE EMAR FOR MEDS GIVEN, TIMES GIVEN. CONTINUE CARE.
[2020-04-26] MEDS ORDERED: CALCIUM GLUC 4.65meq/50ml D5AE 50 ML IV ONE ×2 (16:00→16:31)
[2020-04-26] MEDS ORDERED: InsuLIN REG 1unit/0.01ml Soln (100units/ml) IV ONE (16:00)
[2020-04-26] MEDS ORDERED: DEXTROSE (50%) 50ML SYRG IV ONE (16:00)
[2020-04-26] MEDS ORDERED: SODIUM ZIRCONIUM CYCL 10 GM PAK PO ONE (16:00)
[2020-04-26 16:03] LABS: Band Neutrophils % (manual) 9; Lymphocytes % (manual) 20 (10.0-50.0); Metamyelocytes % 3; Monocytes % (manual) 4 (0-12); Myelocytes % 1
--- NOTE | 2020-04-26 17:05 | NUR ---
DR. kelsey LEVY AT BEDSIDE: UPDATING FAMILY DR. Kelsey LEVY UPDATED ON PT'S CURRENT STATUS, LABS, ABG AND CURRENT GTT'S AT THIS TIME. ORDERS GIVEN AND TO CARRIED OUT. MD TALKING WITH PATIENT'S SON BELLA AND [id number]-EM-OXJ AT BEDSIDE. CONTINUE CARE. FAMILY REMAINS AT BEDSIDE.
--- NOTE | 2020-04-26 18:15 | NUR ---
DR. LASSITER CALLED: UPDATE MD UPDATED ON PT'S CURRENT ABG RESULTS AT THIS TIME. NO NEW ORDERED RECEIVED. OBTAIN ABG IN AM. WILL CONTINUE WITH IVF, BICARB GTT, PER MD ORDER. CONTINUE CARE.
--- NOTE | 2020-04-26 19:30 | NUR ---
REPORT RECEIVED AND ASSUMED CARE; SEE INTERVENTIONS FOR ASSESSMENT; SEE IV SPREADSHEET FOR GTTS; VS STABLE AT THIS TIME- EXCEPT FOR TEMP= 95.2/RECTALLY AND WARMING MEASURES HAVE BEEN STARTED; PT. ALSO ON LEVOPHED GTT AND CASSIE GTT FOR BLOOD PRESSURE SUPPORT; WILL CONT. TO MONITOR.
[2020-04-26] MEDS: NOREPINEPHRINE 8 MG/250ML KIT 250 ML IV SCH (21:57)
[2020-04-26] MEDS: SODIUM ZIRCONIUM CYCL 10 GM PAK PO SCH (22:00)
[2020-04-26 23:44] LABS: Hemoglobin 11.9 g/dL (12.2-16.2); Mean Corpuscular Hemoglobin 29.7 pg (28.0-32.0)
[2020-04-26 23:46] LABS: Hematocrit 36.3 % (36.0-46.0); Mean Corpuscular Hgb Conc. 32.9 g/dL (32.0-36.0); Mean Corpuscular Volume 90.4 fL (80.0-100.0); Red Blood Cells 4.01 10^6/uL (4.0-5.20); White Blood Cell 24.4 10^3/uL (4.4-10.8)
[2020-04-26 23:58] LABS: Platelet Count (auto) 17 10^3/uL (140-450)
[2020-04-26 23:59] LABS: Basophils % (manual) 0 (0.0-2.0); Blast Cells 0; Eosinophils % (manual) 0 (0-7); Metamyelocytes % 0; Myelocytes % 0; Promyelocytes % 0; Reactive Lymphocytes 0
[2020-04-27] VITALS (118 sets, daily range): BP systolic 12–181; BP diastolic 46–125
[2020-04-27 00:01] LABS: Anion Gap 21 (5-15); BUN/Creatinine Ratio 10.4; Blood Urea Nitrogen 15 mg/dL (7-18); Chloride 110 mmol/L (98-107); GFR African American 47 mL/min; GFR Non-African American 39 mL/min; Glucose 391 mg/dL (74-106); Magnesium 1.9 mg/dL (1.6-2.6); Potassium 5.2 mmol/L (3.5-5.1); Sodium 138 mmol/L (136-145)
[2020-04-27 00:04] LABS: Albumin 0.7 g/dL (3.4-5.0); Calcium < 5.0 mg/dL (8.5-10.1); Carbon Dioxide 7 mmol/L (21-32)
[2020-04-27 00:24] LABS: INR > 8.0 (0.9-1.15); Partial Thromboplastin Time > 139.0 sec (23.64-32.05)
[2020-04-27] MEDS: PHENYLEPHRINE IV 250 ML IV SCH ×2 (01:02→09:22)
[2020-04-27] MEDS: VASOPRESSIN 50 UNITS in D5W 5% 247.5 ML IV SCH ×2 (04:00→08:10)
[2020-04-27 05:31] LABS: Band Neutrophils % (manual) 9; Lymphocytes % (manual) 8 (10.0-50.0); Monocytes % (manual) 6 (0-12)
[2020-04-27] MEDS: SODIUM ZIRCONIUM CYCL 10 GM PAK PO SCH (06:00)
--- NOTE | 2020-04-27 06:00 | NUR ---
CASSIE GTT OFF AND WILL CONT. TO MONITOR.
--- NOTE | 2020-04-27 07:30 | NUR ---
S/W DR. DOLL RE: THIS AM ABG; NO CHANGES AT THIS TIME.
--- NOTE | 2020-04-27 08:00 | NUR ---
ASSESSMENT: Patient remains critical, on vasopressor therapy; refer to IV spreadsheet for medications and dosing. Right radial pulse is unobtainable via palpation and doppler, bilateral dorsalis unobtainable via palpation and doppler, bilateral dorsalis pedis obtainable via doppler. Patient has discoloration to bilateral distal feet area is dusky purple cold to touch, left knee with dusky purple-red discoloration. Heparin in A-line pressure bag changed to NS due to abnormal PT/PTT values.
--- NOTE | 2020-04-27 09:00 | NUR ---
SEDATION VACATION; Patient condition not appropriate for sedation vacation at this time. Patient becomes tachypneic with low tidal volumes with care. Addendum: 04/27/20 at 1457 by Wendy Lyman RN Amended: Links added.
[2020-04-27 09:05] LABS: Red Blood Cells 2.79 10^6/uL (4.0-5.20); Red Cell Distribution Width 16.2 % (11.8-14.3)
[2020-04-27 09:06] LABS: Hematocrit 23.9 % (36.0-46.0); Hemoglobin 8.2 g/dL (12.2-16.2); Mean Corpuscular Hemoglobin 29.6 pg (28.0-32.0); Mean Corpuscular Hgb Conc. 34.5 g/dL (32.0-36.0); Mean Corpuscular Volume 85.7 fL (80.0-100.0); Platelet Count (auto) 99 10^3/uL (140-450); White Blood Cell 8.5 10^3/uL (4.4-10.8)
[2020-04-27] MEDS: OCTREOTIDE ACETATE 500 MCG in SODIUM CHL 0.9% 99 ML IV SCH (09:15)
[2020-04-27 09:17] LABS: Basophils % (manual) 0 (0.0-2.0); Blast Cells 0; Eosinophils % (manual) 0 (0-7); Myelocytes % 0; Promyelocytes % 0; Reactive Lymphocytes 0
[2020-04-27 09:19] LABS: Magnesium 1.6 mg/dL (1.6-2.6); Potassium 3.5 mmol/L (3.5-5.1)
[2020-04-27 09:27] LABS: BUN/Creatinine Ratio 9.8; Bilirubin, Total 0.9 mg/dL (0.2-1.0); Total Protein 2.3 g/dL (6.4-8.2)
--- NOTE | 2020-04-27 09:33 | NUR ---
AM CXR REVIEWED. RETRACTED ETT AND IS NOW SECURED AT 21 CM AT THE LIP. RN AWARE OF CHANGE.
--- NOTE | 2020-04-27 09:45 | NUR ---
FAMILY TO BEDSIDE: Patient's son Robbie and his to bedside. Updated on patient condition, informed them that patient remains critical. Discussed current medications with them, informed them that updated labs are not yet back.
[2020-04-27 09:58] LABS: INR 3.2 (0.9-1.15)
[2020-04-27 10:07] LABS: Albumin 0.9 g/dL (3.4-5.0)
[2020-04-27 10:21] LABS: Band Neutrophils % (manual) 10; Lymphocytes % (manual) 19 (10.0-50.0); Metamyelocytes % 2; Monocytes % (manual) 10 (0-12)
--- NOTE | 2020-04-27 10:30 | NUR ---
REPOSITIONING; Patient unstable for repositioning, attempted to reposition patient RR increased to 40's and systolic blood pressure decreased to 70's. Patient to remain supine at this time. Addendum: 04/27/20 at 1457 by Wendy Lyman RN Amended: Links added.
[2020-04-27] MEDS: PANTOPRAZOLE 40 MG/10 ML VIAL INJ IV SCH ×2 (11:00→22:00)
[2020-04-27] MEDS: MIDAZOLAM DRIP 50 mg/50mL 50 ML IV SCH (11:54)
[2020-04-27] MEDS ORDERED: ALBUMIN 25% 100 ML IV ONE (12:15)
[2020-04-27] MEDS ORDERED: SODIUM BICARBONATE 50ML VIAL 150 ML in D5W 5% 1,000 ML IV SCH (12:15)
[2020-04-27] MEDS ORDERED: PIPERACILLIN-TAZOB 3.375GM 100 ML IV ONE (12:30)
[2020-04-27] MEDS ORDERED: FUROSEMIDE 40 MG/4 ML VIAL IV ONE (13:00)
[2020-04-27] MEDS ORDERED: CALCIUM CHL 100MG/ML 1,000 MG in D5W 5% 100 ML IV ONE (13:00)
[2020-04-27] MEDS ORDERED: CALCIUM GLUC 4.65 MEQ/10ML 13.95 MEQ in SODIUM CHL 0.9% 250 ML IV ONE (13:00)
[2020-04-27] MEDS ORDERED: MAGNESIUM SULFATE 1GM/100ML 100 ML IV ONE (13:00)
[2020-04-27] MEDS ORDERED: PHYTONADIONE (VIT K)10 MG/ML 1ML VIAL SUBCUT ONE (13:00)
[2020-04-27] MEDS ORDERED: POTASSIUM PHOSPHATE 44 MEQ in D5W 5% 250 ML IV ONE (13:00)
[2020-04-27] MEDS ORDERED: ALBUMIN 25% 100 ML IV SCH (13:00)
[2020-04-27] MEDS ORDERED: SODIUM CHLORIDE 0.9% 1,000 ML IV SCH (13:00)
[2020-04-27] MEDS ORDERED: CALCIUM GLUC 4.65meq/50ml D5AE 50 ML IV ONE ×3 (13:00→21:15)
[2020-04-27 14:01] LABS: Lactic Acid w/Reflex 13.1 mmol/L (0.4-2.0)
[2020-04-27 14:05] LABS: Partial Thromboplastin Time 45.2 sec (23.64-32.05)
[2020-04-27 14:10] LABS: INR 3.39 (0.9-1.15)
[2020-04-27 14:11] LABS: Protein, Urine 332.2 mg/dL (0.0-11.9)
[2020-04-27] MEDS ORDERED: methylPREDNISolone SOD SUCC 40 MG/ML VL ONE (14:16)
[2020-04-27] MEDS: MAGNESIUM SULFATE 1GM/100ML 100 ML IV SCH ×2 (14:30→16:56)
[2020-04-27] MEDS ORDERED: methylPREDNISolone SOD SUCC 40 MG/ML VL IV ONE (14:45)
--- NOTE | 2020-04-27 15:53 | NUR ---
CALL FROM ONLINE RADIOLOGY: Received call from online radiology company confirming receipt of critical results.
--- NOTE | 2020-04-27 15:57 | NUR ---
PAGED: Dr. Ibrahim paged regarding critical arterial US results, await return call.
--- NOTE | 2020-04-27 16:10 | NUR ---
assessment Patient is a 64 year old female who is on a vent. I have left a message for family to return my call for initial assessment. Patient was transferred to ICU 04/26/2020. I will continue to monitor and follow up as appropriate. Addendum: 04/27/20 at 1613 by Janelle BETTS Amended: Links added.
--- NOTE | 2020-04-27 16:12 | NUR ---
Nutrition Followup Notes Pt wt is 106.1 kg Pt is sedated, intubated, with no relatives at bedside when rounded this morning. Pt is currently NPO with GI bleed. Will continue to monitor PO status, skin status, pertinent labs and weight trends. Will f/u in 2-3 days. Est Energy needs ABW 69 [id number] kcals (20-23kcal/kgBW), Est Protein needs: 69-75 gms/day (1.0-1.1 gm/kgBW) LABS: ALB 0.7 L, CO2 7 L, GLUC 391 H, CA 5.0 L GI: Pt had last BM on 04/25 per RN doc. BS: 15 mod risk Please refer to wound assessment report for full details. PES: Altered nutrition related lab values r.t current chronic medical condition aeb hyperglycemia, elev TG Decreased nutrient needs r/t adiposity aeb pt`s high BMI of 35.5 kg/m2 Comments 1) Consider low lactose diet along with current diet if diarr persist 2) If albumin continues trending down, consider Prostat 1 pkt TID 3) Refer to OPD dietitian on DC 4) Continue current plan of care
[2020-04-27 17:38] LABS: Hemoglobin 7.7 g/dL (12.2-16.2)
[2020-04-27 17:40] LABS: Hematocrit 20.4 % (36.0-46.0); Mean Corpuscular Hemoglobin 33.1 pg (28.0-32.0); Mean Corpuscular Hgb Conc. 37.6 g/dL (32.0-36.0); Mean Corpuscular Volume 88.2 fL (80.0-100.0); Platelet Count (auto) 102 10^3/uL (140-450); Red Blood Cells 2.32 10^6/uL (4.0-5.20); Red Cell Distribution Width 16.5 % (11.8-14.3)
[2020-04-27 17:44] LABS: Basophils % (manual) 0 (0.0-2.0); Blast Cells 0; Eosinophils % (manual) 0 (0-7); Promyelocytes % 0; Reactive Lymphocytes 0
[2020-04-27 17:48] LABS: BUN/Creatinine Ratio 9.7; Potassium 4.7 mmol/L (3.5-5.1)
[2020-04-27 17:57] LABS: Bilirubin, Total 1.4 mg/dL (0.2-1.0); Total Protein 2.3 g/dL (6.4-8.2)
[2020-04-27 17:58] LABS: Band Neutrophils % (manual) 8; Lymphocytes % (manual) 29 (10.0-50.0); Metamyelocytes % 6; Monocytes % (manual) 10 (0-12); Myelocytes % 1
[2020-04-27 18:03] LABS: White Blood Cell 9.8 10^3/uL (4.4-10.8)
[2020-04-27 18:07] LABS: Albumin 0.9 g/dL (3.4-5.0); Calcium 5.1 mg/dL (8.5-10.1)
[2020-04-27] MEDS: PIPERACILLIN-TAZOB 2.25GM 50 ML IV SCH (18:21)
[2020-04-27 19:37] LABS: Albumin 1.6 g/dL (3.4-5.0); BUN/Creatinine Ratio 8.4
--- NOTE | 2020-04-27 19:45 | NUR ---
DR. MARTÍNEZ ON UNIT TO CONSULT ON PATIENT; RX FOR STAT LABS.
[2020-04-27 19:53] LABS: Bilirubin, Total 1.9 mg/dL (0.2-1.0); Total Protein 2.8 g/dL (6.4-8.2)
[2020-04-27 20:11] LABS: Calcium 5.7 mg/dL (8.5-10.1)
--- NOTE | 2020-04-27 20:55 | NUR ---
BOLUS PT. 500ML NS/ BP= 87/48; WILL CONT. TO MONITOR.
[2020-04-27] MEDS: ALBUMIN 25% 100 ML IV SCH (21:12)
[2020-04-27 21:19] LABS: Mean Corpuscular Hemoglobin 30.3 pg (28.0-32.0); Mean Corpuscular Hgb Conc. 32.3 g/dL (32.0-36.0); Mean Corpuscular Volume 93.7 fL (80.0-100.0); Platelet Count (auto) 67 10^3/uL (140-450); Red Cell Distribution Width 17.6 % (11.8-14.3)
[2020-04-27 21:28] LABS: Hemoglobin 5.2 g/dL (12.2-16.2)
[2020-04-27 21:29] LABS: Basophils % (manual) 0 (0.0-2.0); Blast Cells 0; Eosinophils % (manual) 0 (0-7); Promyelocytes % 0; Reactive Lymphocytes 0
[2020-04-27 21:48] LABS: Fibrinogen < 50 mg/dL (177-375); Partial Thromboplastin Time 109.3 sec (23.64-32.05)
[2020-04-27 21:52] LABS: Band Neutrophils % (manual) 13; Lymphocytes % (manual) 18 (10.0-50.0); Metamyelocytes % 6; Monocytes % (manual) 9 (0-12); Myelocytes % 1
--- NOTE | 2020-04-27 21:55 | NUR ---
UPDATED FAMILY ( SON & [id number]), ON PT. GRAVE CONDITION AND PLAN OF CARE.
--- NOTE | 2020-04-27 22:18 | NUR ---
LAB VALUES IN AND S/W DR. MARTÍNEZ; RX GIVEN FOR CRYOPRECIPITATE X2 BAGS AND X2 UNITS PRBC TO BE GIVEN NOW.
[2020-04-27 22:37] LABS: White Blood Cell 10.5 10^3/uL (4.4-10.8)
[2020-04-28] VITALS (55 sets, daily range): BP systolic 42–162; BP diastolic 9–90
--- NOTE | 2020-04-28 00:20 | NUR ---
PATIENT HAD A LARGE RECTAL BLOODY STOOL; LOOSE, BRIGHT RED, LARGE; PT. TOO UNSTABLE TO TURN AND CLEAN-PLACED TOWEL TO ABSORB; WILL CONT. TO MONITOR.
--- NOTE | 2020-04-28 00:29 | NUR ---
RT AT BEDSIDE OBTAINING ABG.
--- NOTE | 2020-04-28 00:31 | NUR ---
PAGED DR. Kelsey LEVY TO INFORM OF LARGE, BLOODY, BM.
--- NOTE | 2020-04-28 00:35 | NUR ---
LEFT MESSAGE ON BELLA'S CELL PHONE (SON OF PATIENT), TO INFORM HIM OF STATUS CHANGE IN HIS MOTHER; STARTED RECTAL BLEEDING.
--- NOTE | 2020-04-28 00:42 | NUR ---
PAGED DR. MARCOS WITH ABG RESULTS NAHCO3 IS UNDETECTABLE.
--- NOTE | 2020-04-28 00:50 | NUR ---
S/W DR. MARCOS AND RX GIVEN FOR X5 AMPS OF NAHCO3 IVP; START 1/2 NS WITH X2 AMPS NAHCO3 TO RUN AT 125ML/HR.
[2020-04-28] MEDS ORDERED: SODIUM BICARBONATE 8.4 % INJ 50ML VIAL IV ONE ×4 (00:51→08:49)
--- NOTE | 2020-04-28 01:10 | NUR ---
CALLED SYDNIE ([id number]) TO INFORM OF CHANGE; NO ANSWER AND MAILBOX FULL AND UNABLE TO LEAVE MESSAGE.
--- NOTE | 2020-04-28 01:13 | NUR ---
CALLED BELLA (SON) TO UPDATE ON PATIENT GRAVE CONDITION AND NEW RECTAL BLEEDING; LEFT MESSAGE TO CALL BACK.
[2020-04-28] MEDS ORDERED: SODIUM BICARBONATE 50ML VIAL 100 ML in SOD CHL 0.45% 1,000 ML IV SCH (01:15)
[2020-04-28] MEDS: OCTREOTIDE ACETATE 500 MCG in SODIUM CHL 0.9% 99 ML IV SCH (02:00)
--- NOTE | 2020-04-28 02:20 | NUR ---
RT AT BEDSIDE TO TROUBLE-SHOOT VENTILATOR AND ENABLE PT. TO VENTILATE BETTER PT. VOLUMES HAVE DROPPED INTO 150'S; WILL MONITOR.
[2020-04-28] MEDS: ALBUMIN 25% 100 ML IV SCH (05:00)
[2020-04-28] MEDS: PIPERACILLIN-TAZOB 2.25GM 50 ML IV SCH ×2 (06:00)
[2020-04-28] MEDS ORDERED: VASOPRESSIN 20 UNIT/ML ONE (06:47)
--- NOTE | 2020-04-28 07:00 | NUR ---
left message for marilyn (son) to call inregards to change in status; pt. having heart changes, rectal bleeding, and acidotic; grave outcome.
--- NOTE | 2020-04-28 08:28 | NUR ---
CALLED BELLA (SON) CELL PHONE AND ACTUALLY SPOKE WITH SYDNIE ([id number]) AND INFORMED HER THAT WE WERE CURRENTLY CODING THE PATIENT; THEY ARE ON THEIR WAY HERE.
[2020-04-28 08:43] LABS: Hematocrit 20.7 % (36.0-46.0); Mean Corpuscular Hemoglobin 30.2 pg (28.0-32.0); Mean Corpuscular Hgb Conc. 31.8 g/dL (32.0-36.0); Mean Corpuscular Volume 94.9 fL (80.0-100.0); Platelet Count (auto) 34 10^3/uL (140-450); Red Blood Cells 2.19 10^6/uL (4.0-5.20); Red Cell Distribution Width 15.7 % (11.8-14.3); White Blood Cell 8.8 10^3/uL (4.4-10.8)
[2020-04-28 08:45] LABS: Hemoglobin 6.6 g/dL (12.2-16.2)
[2020-04-28 08:48] LABS: Chloride 101 mmol/L (98-107); Sodium 140 mmol/L (136-145)
--- NOTE | 2020-04-28 08:48 | NUR ---
NOTIFIED DR. Kelsey LEVY THAT PATIENT IS CURRENTLY CODING AND [facility]C HAS NOT RETURNED.
--- NOTE | 2020-04-28 08:50 | NUR ---
DR. PALOMARES (ER DRMoise) CALLED TIME OF .
--- NOTE | 2020-04-28 08:53 | NUR ---
MD Dr. Hinds called time of .
[2020-04-28 09:05] LABS: Alkaline Phosphatase 404 U/L (45-117); BUN/Creatinine Ratio 6.4; Bilirubin, Total 1.3 mg/dL (0.2-1.0); Blood Urea Nitrogen 18 mg/dL (7-18); Carbon Dioxide 10 mmol/L (21-32); GFR African American 22 mL/min; GFR Non-African American 18 mL/min; Glucose 68 mg/dL (74-106); Magnesium 2.9 mg/dL (1.6-2.6); Total Protein 2.1 g/dL (6.4-8.2)
--- NOTE | 2020-04-28 09:10 | NUR ---
FAMILY Family at bedside.
[2020-04-28 09:16] LABS: Anion Gap 29 (5-15)
[2020-04-28 09:17] LABS: INR 7.49 (0.9-1.15); Partial Thromboplastin Time 15.5 sec (23.64-32.05)
[2020-04-28 09:23] LABS: Aspartate Aminotransferase 12918 U/L (15-37)
[2020-04-28 09:24] LABS: Alanine Aminotransferase > 3510 U/L (13-56)
[2020-04-28 09:26] LABS: Calcium 5.8 mg/dL (8.5-10.1); Phosphorus > 9.0 mg/dL (2.5-4.90)
--- NOTE | 2020-04-28 09:32 | NUR ---
[facility] called and spoke to Jonelle states " will move forward will call you back in a few hours to see status of scanning manager." Off phone at [phone]. Reference number [id number]
--- NOTE | 2020-04-28 09:43 | NUR ---
re-assessment Patient has . Family has been informed and on the way to hospital now. Addendum: 04/28/20 at 0944 by Janelle BETTS Amended: Links added.
--- NOTE | 2020-04-28 10:05 | NUR ---
[employer] [employer] office called and spoke to Haylee who states " medicare coordinator will call later."
--- NOTE | 2020-04-28 10:23 | NUR ---
AREA CAPTAIN OFFICE Received phone call from doctor of optometry's field artillery officer Janelle Avalos and states " not reportable at this time, release of body."
--- NOTE | 2020-04-28 11:15 | NUR ---
Spoke to [facility] regarding discrepancy with documenting final blood transfusion. Blood transfusion was started at 0807 after verification checklist was completed. Transfusion continued until 0826 when patient went into asystole and Code Blue was called. Patient and time of was called at 0850. Approximately 120 mls of blood was infused. Vitals taken at 15 minute interval. For some reason, I cannot chart the end of the transfusion, nor the beginning. The transfusion documentation spreadsheet does not allow me. I called [facility] to see if they could override this. Tech was speak to risk manager and call me back if this is possible.
--- NOTE | 2020-04-28 11:45 | NUR ---
FAMILY Received phone call from Junito requesting [employer]. [employer] office number given per Change nurse Earnestine to have family call so they can arrange with utility operator yarn.
--- NOTE | 2020-04-28 12:10 | NUR ---
POST MORTEM CARE Post mortem care provided to patient.
--- NOTE | 2020-04-28 12:44 | NUR ---
Several pages out to Dr Ibrahim to notify of patients .
--- NOTE | 2020-04-28 12:45 | NUR ---
MD Dr. Landin called to received patients number to call them.
--- NOTE | 2020-04-28 12:55 | NUR ---
[facility] called and spoke to Cynthia regarding a courtesy hold for family. States " Will call back with ETA."
--- NOTE | 2020-04-28 13:00 | NUR ---
[facility] Received phone call from [facility] spoke to Jonelle for additional information regarding patients mortuary.
[2020-04-28 13:10] LABS: Basophils % (manual) 0 (0.0-2.0); Blast Cells 0; Eosinophils % (manual) 0 (0-7); Myelocytes % 0; Promyelocytes % 0; Reactive Lymphocytes 0
[2020-04-28 13:30] LABS: Band Neutrophils % (manual) 16; Lymphocytes % (manual) 59 (10.0-50.0); Metamyelocytes % 1; Monocytes % (manual) 4 (0-12)
--- NOTE | 2020-04-28 14:08 | NUR ---
[facility] at bedside to transfer patient to their facility.
== END 2020-04-28 14:08 | disposition expired | DRG 871 ==
LOC: ER 12:13 → TELE 12:14 → DOU IN ICU 04-23 15:53 → TELE-WESTW 04-23 15:59 → DOU IN ICU 04-25 15:43 → ICU WEST 04-26 10:25
PROVIDERS: ADMIT Nurse Practitioner Acute Care; ATTEND Internal Medicine
PROC: 0DB88ZX Excision of Small Intestine, Via Natural or Artificial Opening Endoscopic, Diagnostic (ICD-10-PCS; 2020-04-23)
PROC: 0DJD8ZZ Inspection of Lower Intestinal Tract, Via Natural or Artificial Opening Endoscopic (ICD-10-PCS; 2020-04-23)
PROC: 0DB58ZX Excision of Esophagus, Via Natural or Artificial Opening Endoscopic, Diagnostic (ICD-10-PCS; principal; 2020-04-23 11:17)
PROC: 0DB68ZX Excision of Stomach, Via Natural or Artificial Opening Endoscopic, Diagnostic (ICD-10-PCS; 2020-04-24)
PROC: 30233L1 Transfusion of Nonautologous Fresh Plasma into Peripheral Vein, Percutaneous Approach (ICD-10-PCS; 2020-04-24)
PROC: 30233N1 Transfusion of Nonautologous Red Blood Cells into Peripheral Vein, Percutaneous Approach (ICD-10-PCS; 2020-04-24)
PROC: 30233R1 Transfusion of Nonautologous Platelets into Peripheral Vein, Percutaneous Approach (ICD-10-PCS; 2020-04-24)
PROC: 30233M1 Transfusion of Nonautologous Plasma Cryoprecipitate into Peripheral Vein, Percutaneous Approach (ICD-10-PCS; 2020-04-24)
PROC: 30233K1 Transfusion of Nonautologous Frozen Plasma into Peripheral Vein, Percutaneous Approach (ICD-10-PCS; 2020-04-24)
DX: A41.9 Sepsis, unspecified organism (principal); N17.0 Acute kidney failure with tubular necrosis; J96.01 Acute respiratory failure with hypoxia; K27.4 Chronic or unspecified peptic ulcer, site unspecified, with hemorrhage; E87.2 Acidosis; D62 Acute posthemorrhagic anemia; D68.9 Coagulation defect, unspecified; E87.1 Hypo-osmolality and hyponatremia; E87.4 Mixed disorder of acid-base balance; K57.32 Diverticulitis of large intestine without perforation or abscess without bleeding; K31.6 Fistula of stomach and duodenum; Z68.42 Body mass index [BMI] 45.0-49.9, adult; E78.5 Hyperlipidemia, unspecified; T50.8X5A Adverse effect of diagnostic agents, initial encounter; T39.395A Adverse effect of other nonsteroidal anti-inflammatory drugs [NSAID], initial encounter; N14.1 Nephropathy induced by other drugs, medicaments and biological substances; M41.9 Scoliosis, unspecified; D69.6 Thrombocytopenia, unspecified; E66.9 Obesity, unspecified; E83.41 Hypermagnesemia; R57.8 Other shock; F10.20 Alcohol dependence, uncomplicated; Y90.0 Blood alcohol level of less than 20 mg/100 ml; D64.9 Anemia, unspecified; E88.09 Other disorders of plasma-protein metabolism, not elsewhere classified; E83.51 Hypocalcemia; E83.42 Hypomagnesemia; E83.39 Other disorders of phosphorus metabolism; E87.6 Hypokalemia; K27.9 Peptic ulcer, site unspecified, unspecified as acute or chronic, without hemorrhage or perforation; M19.90 Unspecified osteoarthritis, unspecified site; Z79.899 Other long term (current) drug therapy; Z80.8 Family history of malignant neoplasm of other organs or systems; Z82.3 Family history of stroke; Z82.49 Family history of ischemic heart disease and other diseases of the circulatory system; Z98.84 Bariatric surgery status; Z90.49 Acquired absence of other specified parts of digestive tract
CPT/HCPCS: 31500; 36415; 36430; 36600; 43239; 45378; 51702; 71045; 74176; 75625; 76937; 80048; 80053; 80061; 80307; 80320; 81001; 82040; 82270; 82805; 82962; 83036; 83605; 83690; 83735; 84100; 84132; 84156; 84300; 84443; 84484; 85007; 85014; 85018; 85025; 85027; 85362; 85379; 85384; 85610; 85730; 86850; 86900; 86901; 86920; 87040; 87070; 87205; 93005; 93925; 94002; 94003; 96361; 96374; 96375; 99152; 99153; C9113; G0378; J0171; J0330; J0610; J0696; J1815; J2250; J2405; J2543; J3430; J3490; J7060; P9047; Q9967